=== PATIENT | female | born 1940 | race Caucasian/White ===

== ENCOUNTER 2020-08-10 15:41 | Inpatient (IN) | payer MEDICARE, OTHER, SELFPAY ==
[2020-08-10 16:03] VITALS: PULSE 75; RESP 18; O2SAT 97; BMI 30.1
[2020-08-10 16:15] VITALS: BP 144/63; PULSE 83; RESP 16; TEMP 36.5; O2SAT 93
[2020-08-10] MEDS: Aspirin E.C. 81 MG Tablet PO (18:12)
--- NOTE | 2020-08-10 19:12 | HP.PCM_ITS ---
Problem List (1) Debility Status: Acute (2) Fall Status: Acute (3) Fracture of left tibia and fibula Status: Acute (4) Asthma Status: Chronic (5) Chronic kidney disease Status: Chronic (6) Familial tremor Status: Chronic (7) History of pelvic fracture Status: Chronic (8) Hyponatremia Status: Chronic (9) Hyperlipidemia Status: Chronic (10) Hypokalemia Status: Chronic History of Present Illness Date of Admission: 08/10/20 Chief Complaint: Here for rehabilitation, strengthening, prior to discharge home alone. 08/07/20 The patient is a 80 year old Female with below past medical history admitted to [facility] after falling while walking down driveway and hurting left ankle. Patient was walking down her driveway in the snow. She slipped and fell. She has left tib-fib fracture that is not well approximated. Soft cast placed in emergency department. She will require surgery for fixation of the fracture. No syncope. Patient was cleared for surgery. 08/08/20 Orthopedics performed intramedullary rodding of left tibia. Post operative course uncomplicated. 08/10/20 Admit to TCU with debility, here for rehabilitation, strengthening, prior to discharge home alone. Past Medical History Past Medical History (Chronic Problems): Chronic Problems Asthma (Chronic) Chronic kidney disease (Chronic) Familial tremor (Chronic) History of pelvic fracture (Chronic) Hyponatremia (Chronic) Hyperlipidemia (Chronic) Hypokalemia (Chronic) Allergies No Known Allergies Allergy (Verified 08/10/20 16:15) Home Medications: Ambulatory Orders Medication Instructions Recorded Acetaminophen [Pain Relief] 650 mg PO Q4H PRN 08/10/20 Aspirin [Aspirin EC] 81 mg PO BID 08/10/20 Vit C/E/Zn/Coppr/Lutein/Zeaxan 1 tab PO DAILY 08/10/20 [Preservision Areds 2 Softgel] Surgical History: hysterectomy - Abdominal 1984., tonsillectomy, - - Arthroscopy 10/05/99, Left tibia intramedullary rodding. 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 Paternal History Items: Heart Disease, Hypertension Maternal History Items: Clotting Disorder - Thrombocytopenia., - - Glaucoma, heart valve disorder. Review of Systems Constitutional: Denies: Chills, Fever, Weight Change HEENT: Denies: Head Aches, Sinus Congestion, Sinus Drainage Cardiovascular: Denies: Chest Pain, Palpitations Respiratory: Denies: Cough, Shortness of breath at rest, Sputum production Gastrointestinal: Denies: Abdominal Pain, Nausea, Vomiting Genitourinary: Denies: Dysuria Musculoskeletal: Denies: Joint Pain, Joint Tenderness Skin: Denies: Rash, Wounds Neurological: Denies: Numbness, Tingling, Focal weakness Psychiatric: Denies: Anxiety, Depression, Homicidal Ideations, Suicidal Ideations Hematologic/ Lymphatic: Denies: Easy Bruising, Easy Bleeding VTE Information - Inpt Only VTE Present on Admission: No VTE Mechan Device Prophylaxis: Knee High KIRK Hose VTE Pharm Prophylaxis ordered?: Yes Patient Problems: Active and Suspected Problems Debility (Acute) Fall (Acute) Fracture of left tibia and fibula (Acute) - Physical Exam Vitals/I&O's: Vital Signs Temp Pulse Resp BP Pulse Ox 97.7 F L 83 16 144/63 H 93 08/10/20 16:15 08/10/20 16:15 08/10/20 16:15 08/10/20 16:15 08/10/20 16:15 Oxygen Delivery Method Room Air Weight: 72.263 kg Body Mass Index (BMI) 30.1 Intake and Output for Last 24 Hours 08/08/20 08/09/20 08/10/20 23:59 23:59 23:59 Intake Total 240 / 240 Balance 240 / 240 General: Alert, Oriented x3, Cooperative HEENT: Atraumatic, PERRLA, EOMI, Normocephalic Neck: Supple, No JVD, Negative Carotid Bruits Lungs: Clear to auscultation, Normal air movement Cardiovascular: Regular rate, No murmurs Abdomen: Bowel Sounds Present, Soft, Non Tender Extremities: No edema, Capillary Refill Less than 3 Seconds, - - Splint, YAEL wrap left lower extremity. Skin: No rashes, No breakdown Musculoskeletal: No Tenderness to Palpation of Joints or Extremities Neurological: Cranial nerves II-XII grossly intact Psych/Mental Status: Normal Affect, Appropriate Current Medications Acetaminophen (Acetaminophen 325 Mg Tablet) 650 mg PO Q4H PRN PRN Reason: Pain Score 1-10 Aspirin (Aspirin E.C. 81 Mg Tablet) 81 mg PO BID LISE Stop: 09/10/20 06:01 Last Admin: 08/10/20 18:12 Dose: 81 mg Documented by: Multivitamins/Minerals (Multivitamin (Healthy Eyes) Capsule) 1 capsule PO DAILYCM LISE Tuberculin PPD (Tuberculin,Purif.Prot.Deriv. 50 Tu/Ml Vial) 5 tu ID X1 ONE Stop: 08/11/20 10:01 Tuberculin PPD (Tuberculin,Purif.Prot.Deriv. 50 Tu/Ml Vial) 5 tu ID X1 ONE Stop: 08/18/20 10:01 Assessment/Plan All Active Problems Debility (Acute) Fall (Acute) Fracture of left tibia and fibula (Acute) 80 year old female with below past medical history hospitalized for left tibia/fibular fracture, underwent left tibia intramedullary rodding 08/08/2020, admitted to TCU with debility, here for rehabilitation, strengthening, prior to discharge home alone. * Debility - PT/OT. * Pain - Tylenol 1000MG Q6H PRN pain (1-3), Tramadol 50MG Q6H PRN pain (4-5), Oxycodone 2.5MG Q4H PRN pain (6-10). * Bowel - Miralax 17GM daily, Senna/colace 1 tablet BID, MOM 30ML daily PRN, Dulcolax 10MG WA daily PRN. * Adult immunization - Administer Prevnar 13, Pneumovax 23, Fluzone as appropriate. * DVT prophylaxis - Aspirin 81MG BID thru 09/10/2020. * Macular degeneration - Healthy Eyes 1 tablet daily.
[2020-08-11 01:49] VITALS: BP 147/83; PULSE 97; RESP 16; TEMP 36.6; O2SAT 97
[2020-08-11 05:25] LABS: Absolute Lymphocyte Count 0.99 X10^3/uL (0.83-4.51); Absolute Neutrophil Count 8.3 X10^3/uL (2.0-7.7); Basophil# 0.02 X10^3/uL; Basophil% 0.2 % (0-1); Hematocrit 31.5 % (37-47); Hemoglobin 10.4 g/dL (12.0-15.0); Lymphocyte # 0.99 X10^3/ul (4.0); Lymphocyte % 9.6 % (19-41); Mean Corpuscular Hgb 28.2 pg (27.0-32.0); Mean Corpuscular Volume 85.4 fL (81-99); Mean Platelet Vol. 12.8 fl (6.2-12.0); Monocyte# 0.92 X10^3/uL; NRBC Flagged by Analyzer 0 % (0-5); Neutrophil % 80.9 % (47-70); Platelet Count 303 K/mm3 (150-450); RBC Distribution Width CV 13.9 % (11.6-14.6); RBC Distribution Width SD 43.5 fl (35.1-43.9); Red Blood Count 3.69 M/mm3 (4.2-5.4); White Blood Count 10.3 K/mm3 (4.4-11.0)
[2020-08-11 05:42] LABS: Anion Gap 5 (5-15); BUN 23 mg/dL (7-18); BUN/Creat Ratio 41.3 RATIO (10-20); Chloride 105 mmol/L (98-107); Creatinine, Serum 0.56 mg/dL (0.55-1.02); EST Glomerular Filtration Rate 111 mL/min (>60); Est Glom Filt Rate - Afr Amer 134 mL/min (>60); Estimated Creatinine Clearance 32.73 ml/min; Glucose 94 mg/dL (74-106); Potassium 4.1 mmol/L (3.5-5.1); Sodium Level 136 mmol/L (136-145)
[2020-08-11] MEDS: Polyethylene Glycol 3350 17 GM PACKET PO (05:43)
[2020-08-11] MEDS: Senna/Docusate Sodium 1 Tablet PO (05:43)
[2020-08-11] MEDS: Aspirin E.C. 81 MG Tablet PO ×2 (08:26→18:15)
[2020-08-11] MEDS: Iron Polysaccharide Complex 150 MG CAPSULE PO (08:29)
[2020-08-11] MEDS: Multivitamin (Healthy Eyes) Capsule 1 CAP PO (08:31)
--- NOTE | 2020-08-11 12:03 | CASEMGMT ---
Social Work Discussed code status with pt. Pt confirmed full code. MOLST form reviewed, communication to , and placed in chart. Alyse Burnett, MAIL [employer]ERKS SUPERVISOR [employer]RIQUETTE MACHINE OPERATOR
[2020-08-11] MEDS: Tuberculin,Purif.prot.deriv. 50 TU/ML Vial 5 ML ID (12:27)
--- NOTE | 2020-08-11 12:31 | PCM.PN.RX ---
Progress Note - Pharmacy Subjective: [] Objective: Allergies No Known Allergies Allergy (Verified 08/10/20 16:15) Current Medications Generic Name Dose Route Start Last Admin Trade Name Freq PRN Reason Stop Dose Admin Acetaminophen 1,000 mg 08/10/20 19:30 Acetaminophen 500 Mg Tablet PO Q6H PRN PRN Pain Score 1-3 Aspirin 81 mg 08/11/20 08:00 08/11/20 08:26 Aspirin E.C. 81 Mg Tablet PO 09/10/20 08:01 81 mg BIDCM LISE Administration Bisacodyl 10 mg 08/10/20 19:29 Bisacodyl 10 Mg Suppository RECTAL DAILY PRN Constipation Magnesium Hydroxide 30 ml 08/10/20 19:29 Magnesium Hydroxide 30 Ml Udc PO DAILY PRN Constipation Multivitamins/Minerals 1 capsule 08/11/20 08:00 08/11/20 08:31 Multivitamin (Healthy Eyes) Capsule PO 1 capsule DAILY LISE Administration Oxycodone HCl 2.5 mg 08/10/20 19:29 Oxycodone 5 Mg Tablet PO Q4H PRN PRN Pain Score 6-10 Polyethylene Glycol 17 gm 08/11/20 06:00 08/11/20 05:43 Polyethylene Glycol 3350 17 Gm Packet PO 17 gm DAILY LISE Administration Polysaccharide Iron Complex 150 mg 08/11/20 08:00 08/11/20 08:29 Iron Polysaccharide Complex 150 Mg Capsule PO 150 mg DAILY LISE Administration Senna/Docusate Sodium 1 tablet 08/11/20 06:00 08/11/20 05:43 Senna/Docusate Sodium 1 Tablet PO 1 tablet BID LISE Administration Tramadol HCl 50 mg 08/10/20 19:28 Tramadol 50 Mg Tablet PO Q6H PRN PRN Pain Score 4-5 Tuberculin PPD 5 tu 08/18/20 10:00 Tuberculin,Purif.Prot.Deriv. 50 Tu/Ml Vial ID 08/18/20 10:01 X1 ONE Problem List Debility (Acute) Fall (Acute) Fracture of left tibia and fibula (Acute) Asthma (Chronic) Chronic kidney disease (Chronic) Familial tremor (Chronic) History of pelvic fracture (Chronic) Hyponatremia (Chronic) Hyperlipidemia (Chronic) Hypokalemia (Chronic) Vital Signs Temp Pulse Resp BP Pulse Ox 98 F 97 16 147/83 H 97 08/11/20 01:49 08/11/20 01:49 08/11/20 01:49 08/11/20 01:49 08/11/20 01:49 Oxygen Delivery Method Room Air Weight: 72.623 kg Body Mass Index (BMI) 30.1 Sodium 136 mmol/L (136-145) 08/11/20 04:40 Potassium 4.1 mmol/L (3.5-5.1) 08/11/20 04:40 Chloride 105 mmol/L (98-107) 08/11/20 04:40 Carbon Dioxide 26.0 mmol/L (21.0-32.0) 08/11/20 04:40 Anion Gap 5 (5-15) 08/11/20 04:40 BUN 23 mg/dL (7-18) H 08/11/20 04:40 Creatinine 0.56 mg/dL (0.55-1.02) 08/11/20 04:40 Est GFR (MDRD) Af Amer 134 mL/min (>60) 08/11/20 04:40 Est GFR (MDRD) Non-Af 111 mL/min (>60) 08/11/20 04:40 BUN/Creatinine Ratio 41.3 RATIO (10-20) H 08/11/20 04:40 Glucose 94 mg/dL (74-106) 08/11/20 04:40 Assessment/Plan: Psychotropic Medications: Unnecessary Medications: Bowel Regimen: Date of Note:: 08/11/20 - Provider Comments Provider responsibility: Provider responsible to enter orders to implement recommendations
--- NOTE | 2020-08-11 12:35 | PHA.CONS_ITS ---
<Sander Yañez D - Last Filed: 08/11/20 12:35> Progress Note - Pharmacy Subjective: TCU Admission Objective: Allergies No Known Allergies Allergy (Verified 08/10/20 16:15) Current Medications Generic Name Dose Route Start Last Admin Trade Name Freq PRN Reason Stop Dose Admin Acetaminophen 1,000 mg 08/10/20 19:30 Acetaminophen 500 Mg Tablet PO Q6H PRN PRN Pain Score 1-3 Aspirin 81 mg 08/11/20 08:00 08/11/20 08:26 Aspirin E.C. 81 Mg Tablet PO 09/10/20 08:01 81 mg BIDCM LISE Administration Bisacodyl 10 mg 08/10/20 19:29 Bisacodyl 10 Mg Suppository RECTAL DAILY PRN Constipation Magnesium Hydroxide 30 ml 08/10/20 19:29 Magnesium Hydroxide 30 Ml Udc PO DAILY PRN Constipation Multivitamins/Minerals 1 capsule 08/11/20 08:00 08/11/20 08:31 Multivitamin (Healthy Eyes) Capsule PO 1 capsule DAILY LISE Administration Oxycodone HCl 2.5 mg 08/10/20 19:29 Oxycodone 5 Mg Tablet PO Q4H PRN PRN Pain Score 6-10 Polyethylene Glycol 17 gm 08/11/20 06:00 08/11/20 05:43 Polyethylene Glycol 3350 17 Gm Packet PO 17 gm DAILY LISE Administration Polysaccharide Iron Complex 150 mg 08/11/20 08:00 08/11/20 08:29 Iron Polysaccharide Complex 150 Mg Capsule PO 150 mg DAILYCM LISE Administration Senna/Docusate Sodium 1 tablet 08/11/20 06:00 08/11/20 05:43 Senna/Docusate Sodium 1 Tablet PO 1 tablet BID LISE Administration Tramadol HCl 50 mg 08/10/20 19:28 Tramadol 50 Mg Tablet PO Q6H PRN PRN Pain Score 4-5 Tuberculin PPD 5 tu 08/18/20 10:00 Tuberculin,Purif.Prot.Deriv. 50 Tu/Ml Vial ID 08/18/20 10:01 X1 ONE Problem List Debility (Acute) Fall (Acute) Fracture of left tibia and fibula (Acute) Asthma (Chronic) Chronic kidney disease (Chronic) Familial tremor (Chronic) History of pelvic fracture (Chronic) Hyponatremia (Chronic) Hyperlipidemia (Chronic) Hypokalemia (Chronic) Vital Signs Temp Pulse Resp BP Pulse Ox 98 F 97 16 147/83 H 97 08/11/20 01:49 08/11/20 01:49 08/11/20 01:49 08/11/20 01:49 08/11/20 01:49 Oxygen Delivery Method Room Air Weight: 72.623 kg Body Mass Index (BMI) 30.1 Sodium 136 mmol/L (136-145) 08/11/20 04:40 Potassium 4.1 mmol/L (3.5-5.1) 08/11/20 04:40 Chloride 105 mmol/L (98-107) 08/11/20 04:40 Carbon Dioxide 26.0 mmol/L (21.0-32.0) 08/11/20 04:40 Anion Gap 5 (5-15) 08/11/20 04:40 BUN 23 mg/dL (7-18) H 08/11/20 04:40 Creatinine 0.56 mg/dL (0.55-1.02) 08/11/20 04:40 Est GFR (MDRD) Af Amer 134 mL/min (>60) 08/11/20 04:40 Est GFR (MDRD) Non-Af 111 mL/min (>60) 08/11/20 04:40 BUN/Creatinine Ratio 41.3 RATIO (10-20) H 08/11/20 04:40 Glucose 94 mg/dL (74-106) 08/11/20 04:40 Assessment/Plan: 1) Pain APAP for pain 1-3, tramadol for pain 4-5, oxycodone for pain 6-10. Continue to monitor daily pain scores, prn medication use. 2) DVT PPx ASA thru 09/10. Continue to monitor for s/s bleeding/clot. 3) Nutrition Fe, MV. Continue to monitor clinically. Psychotropic Medications: None Unnecessary Medications: None Bowel Regimen: 4) Senna/s, PEG, prn bisacodyl, prn MgOH. Continue to monitor prn medication use, for constipation/diarrhea. Date of Note:: 08/11/20 - Provider Comments Provider responsibility: Provider responsible to enter orders to implement recommendations <Jenaro,Eduardo Chi - Last Filed: 08/11/20 14:21> Progress Note - Pharmacy Subjective: [] Objective: Allergies No Known Allergies Allergy (Verified 08/10/20 16:15) Current Medications Generic Name Dose Route Start Last Admin Trade Name Nhan PRN Reason Stop Dose Admin Acetaminophen 1,000 mg 08/10/20 19:30 Acetaminophen 500 Mg Tablet PO Q6H PRN PRN Pain Score 1-3 Aspirin 81 mg 08/11/20 08:00 08/11/20 08:26 Aspirin E.C. 81 Mg Tablet PO 09/10/20 08:01 81 mg BIDCM [facility] Administration Bisacodyl 10 mg 08/10/20 19:29 Bisacodyl 10 Mg Suppository RECTAL DAILY PRN Constipation Magnesium Hydroxide 30 ml 08/10/20 19:29 Magnesium Hydroxide 30 Ml Udc PO DAILY PRN Constipation Multivitamins/Minerals 1 capsule 08/11/20 08:00 08/11/20 08:31 [facility]ivitamin (Healthy [facility]) [facility] Administration Oxycodone HCl 2.5 mg 08/10/20 19:29 Oxycodone 5 Mg Tablet PO Q4H PRN PRN Pain Score 6-10 Polyethylene Glycol 17 gm 08/11/20 06:00 08/11/20 05:43 Polyethylene Glycol 3350 17 Gm Packet PO 17 gm DAILY [facility] Administration Polysaccharide Iron Complex 150 mg 08/11/20 08:00 08/11/20 08:29 Iron Polysaccharide Complex 150 Mg [facility]apsule [facility] Administration Senna/Docusate Sodium 1 tablet 08/11/20 06:00 08/11/20 05:43 Senna/Docusate Sodium 1 Tablet PO 1 tablet BID [facility] Administration Tramadol HCl 50 mg 08/10/20 19:28 Tramadol 50 Mg Tablet PO Q6H PRN PRN Pain Score 4-5 Tuberculin PPD 5 tu 08/18/20 10:00 Tuberculin,Purif.Prot.Deriv. 50 Tu/Ml Vial ID 08/18/20 10:01 X1 ONE Problem List Debility (Acute) Fall (Acute) Fracture of left tibia and fibula (Acute) Asthma (Chronic) Chronic kidney disease (Chronic) Familial tremor (Chronic) History of pelvic fracture (Chronic) Hyponatremia (Chronic) Hyperlipidemia (Chronic) Hypokalemia (Chronic) Vital Signs Temp Pulse Resp BP Pulse Ox 98 F 97 16 147/83 H 97 08/11/20 01:49 08/11/20 01:49 08/11/20 01:49 08/11/20 01:49 08/11/20 01:49 Oxygen Delivery Method Room Air Weight: 72.623 kg Body Mass Index (BMI) 30.1 Sodium 136 mmol/L (136-145) 08/11/20 04:40 Potassium 4.1 mmol/L (3.5-5.1) 08/11/20 04:40 Chloride 105 mmol/L (98-107) 08/11/20 04:40 Carbon Dioxide 26.0 mmol/L (21.0-32.0) 08/11/20 04:40 Anion Gap 5 (5-15) 08/11/20 04:40 BUN 23 mg/dL (7-18) H 08/11/20 04:40 Creatinine 0.56 mg/dL (0.55-1.02) 08/11/20 04:40 Est GFR (MDRD) Af Amer 134 mL/min (>60) 08/11/20 04:40 Est GFR (MDRD) Non-Af 111 mL/min (>60) 08/11/20 04:40 BUN/Creatinine Ratio 41.3 RATIO (10-20) H 08/11/20 04:40 Glucose 94 mg/dL (74-106) 08/11/20 04:40 Assessment/Plan: Psychotropic Medications: Unnecessary Medications: Bowel Regimen: - Provider Comments Provider responsibility: Provider responsible to enter orders to implement recommendations Provider Comments to Recommendations by Pharmacy: Agree
[2020-08-11 14:51] VITALS: BP 156/72; PULSE 86; RESP 16; TEMP 36.3; O2SAT 95
[2020-08-12 04:00] VITALS: BP 127/61; PULSE 85; RESP 16; TEMP 36.7; O2SAT 92
[2020-08-12] MEDS: Multivitamin (Healthy Eyes) Capsule 1 CAP PO (08:22)
[2020-08-12] MEDS: Iron Polysaccharide Complex 150 MG CAPSULE PO (08:22)
[2020-08-12] MEDS: Aspirin E.C. 81 MG Tablet PO ×2 (08:23→17:23)
--- NOTE | 2020-08-12 12:48 | CASEMGMT ---
Social Work IDT met with patient and friend via conference call for care plan meeting. Discussed patient's progress in therapy. Pt is modA for bed mobility, min for tx, CGA while ambulating 15ft with FWW, and while maintaining TTWBS. Pt is SBA for grooming, SBA while seated for UE ADLs and toileting, CGA for tx, min for LE ADLs. Pt is on a regular diet, receiving Elias, good intake, weight is stable. Pt is out of isolation 1/3. Explained Medicare benefit. Pt's plan is to return home alone, but can stay at a friends house if needed. Provided [employer] resources. Will continue to follow. Alyse Burnett, BRADLEY KRISHNANW
[2020-08-12 14:26] VITALS: BP 141/79; PULSE 91; RESP 16; TEMP 36.6; O2SAT 95
[2020-08-13 05:42] VITALS: BP 137/70; PULSE 90; RESP 16; TEMP 36.4; O2SAT 93
[2020-08-13] MEDS: Aspirin E.C. 81 MG Tablet PO ×2 (09:06→17:28)
[2020-08-13] MEDS: Multivitamin (Healthy Eyes) Capsule 1 CAP PO (09:06)
[2020-08-13] MEDS: Iron Polysaccharide Complex 150 MG CAPSULE PO (09:06)
--- NOTE | 2020-08-13 11:38 | MDS.RN ---
Pain interview for KASEY 08/17/20 completed.
[2020-08-13 12:28] VITALS: PULSE 82; RESP 18; O2SAT 95
[2020-08-13 14:40] VITALS: BP 140/70; PULSE 66; RESP 16; TEMP 36.9; O2SAT 93
[2020-08-14 06:40] VITALS: BP 137/49; PULSE 85; RESP 15; TEMP 36.8; O2SAT 95
[2020-08-14] MEDS: Iron Polysaccharide Complex 150 MG CAPSULE PO (08:09)
[2020-08-14] MEDS: Aspirin E.C. 81 MG Tablet PO ×2 (08:09→17:02)
[2020-08-14] MEDS: Multivitamin (Healthy Eyes) Capsule 1 CAP PO (08:10)
[2020-08-14 15:01] VITALS: BP 135/77; PULSE 81; RESP 16; TEMP 35.6; O2SAT 94
[2020-08-15 01:58] VITALS: BP 146/79; PULSE 77; RESP 16; TEMP 36.6; O2SAT 98
[2020-08-15] MEDS: Aspirin E.C. 81 MG Tablet PO ×2 (08:19→17:40)
[2020-08-15] MEDS: Iron Polysaccharide Complex 150 MG CAPSULE PO (08:19)
[2020-08-15] MEDS: Multivitamin (Healthy Eyes) Capsule 1 CAP PO (08:19)
[2020-08-15 10:00] VITALS: PULSE 82; RESP 18; O2SAT 95
[2020-08-15 16:00] VITALS: BP 115/44; PULSE 88; RESP 16; TEMP 36.9; O2SAT 96
[2020-08-15] MEDS: Nystatin Powder 15gm Bottle 1 APPLIC TOPICAL (17:40)
[2020-08-16 04:00] VITALS: BP 146/45; PULSE 86; RESP 16; TEMP 36.9; O2SAT 95
[2020-08-16] MEDS: Nystatin Powder 15gm Bottle 1 APPLIC TOPICAL ×2 (04:47→17:20)
[2020-08-16] MEDS: Aspirin E.C. 81 MG Tablet PO ×2 (09:22→17:20)
[2020-08-16] MEDS: Iron Polysaccharide Complex 150 MG CAPSULE PO (09:22)
[2020-08-16] MEDS: Multivitamin (Healthy Eyes) Capsule 1 CAP PO (09:22)
[2020-08-16 15:44] VITALS: BP 113/62; PULSE 91; RESP 16; TEMP 36.9; O2SAT 96
[2020-08-16 21:45] VITALS: BP 122/59; PULSE 90; RESP 16; TEMP 37.2; O2SAT 95
[2020-08-17 04:00] VITALS: BP 132/53; PULSE 88; RESP 18; TEMP 36.9; O2SAT 93
[2020-08-17] MEDS: Nystatin Powder 15gm Bottle 1 APPLIC TOPICAL ×2 (05:00→16:35)
[2020-08-17] MEDS: Multivitamin (Healthy Eyes) Capsule 1 CAP PO (09:00)
[2020-08-17] MEDS: Iron Polysaccharide Complex 150 MG CAPSULE PO (09:00)
[2020-08-17] MEDS: Aspirin E.C. 81 MG Tablet PO ×2 (09:00→16:35)
[2020-08-17 10:00] VITALS: PULSE 99; RESP 18; O2SAT 96
[2020-08-17 14:41] VITALS: BP 133/50; PULSE 88; RESP 18; TEMP 36.8; O2SAT 95
[2020-08-17] MEDS: Senna/Docusate Sodium 1 Tablet PO (16:35)
[2020-08-18 05:31] VITALS: BP 144/71; PULSE 82; RESP 16; TEMP 36.6; O2SAT 94
[2020-08-18] MEDS: Nystatin Powder 15gm Bottle 1 APPLIC TOPICAL ×2 (05:31→17:03)
[2020-08-18 05:45] LABS: Absolute Lymphocyte Count 1.82 X10^3/uL (0.83-4.51); Absolute Neutrophil Count 8.7 X10^3/uL (2.0-7.7); Basophil# 0.03 X10^3/uL; Basophil% 0.3 % (0-1); Hematocrit 32.8 % (37-47); Hemoglobin 10.2 g/dL (12.0-15.0); Lymphocyte # 1.82 X10^3/ul (4.0); Lymphocyte % 15.4 % (19-41); Mean Corp Hgb Conc 31.1 g/dL (32-36); Mean Corpuscular Hgb 26.9 pg (27.0-32.0); Mean Corpuscular Volume 86.5 fL (81-99); Mean Platelet Vol. 12.1 fl (6.2-12.0); Monocyte# 1.23 X10^3/uL; Monocyte% 10.4 % (0-10); NRBC Flagged by Analyzer 0 % (0-5); Neutrophil # 8.69 X10^3/uL (2.7-7.7); Neutrophil % 73.2 % (47-70); Platelet Count 457 K/mm3 (150-450); RBC Distribution Width CV 14.1 % (11.6-14.6); RBC Distribution Width SD 44.2 fl (35.1-43.9); Red Blood Count 3.79 M/mm3 (4.2-5.4); White Blood Count 11.9 K/mm3 (4.4-11.0)
[2020-08-18 06:10] LABS: Anion Gap 3 (5-15); BUN 47 mg/dL (7-18); BUN/Creat Ratio 81.9 RATIO (10-20); Calcium,Total 8.5 mg/dL (8.5-10.1); Chloride 103 mmol/L (98-107); Creatinine, Serum 0.57 mg/dL (0.55-1.02); EST Glomerular Filtration Rate 107 mL/min (>60); Est Glom Filt Rate - Afr Amer 129 mL/min (>60); Estimated Creatinine Clearance 32.73 ml/min; Glucose 91 mg/dL (74-106); Potassium 4.4 mmol/L (3.5-5.1); Sodium Level 135 mmol/L (136-145)
[2020-08-18] MEDS: Aspirin E.C. 81 MG Tablet PO ×2 (07:26→17:03)
[2020-08-18] MEDS: Iron Polysaccharide Complex 150 MG CAPSULE PO (07:27)
[2020-08-18] MEDS: Multivitamin (Healthy Eyes) Capsule 1 CAP PO (07:27)
[2020-08-18 13:35] VITALS: BP 126/62; PULSE 90; RESP 16; TEMP 36.4; O2SAT 92
[2020-08-18] MEDS: Tuberculin,Purif.prot.deriv. 50 TU/ML Vial 5 ML ID (13:53)
--- NOTE | 2020-08-18 14:58 | NURSING ---
Resident and family updated on COVID status on unit.
[2020-08-18] MEDS: Senna/Docusate Sodium 1 Tablet PO (17:03)
--- NOTE | 2020-08-18 22:42 | NURSING ---
Patient had otto in purse that she wanted to be locked up. $194 was counted with patient and RN Uzma. Then money was put in bag and put in med drawer.
[2020-08-19] MEDS: Nystatin Powder 15gm Bottle 1 APPLIC TOPICAL ×2 (06:13→17:47)
[2020-08-19 06:15] VITALS: BP 131/58; PULSE 75; RESP 18; TEMP 36.6; O2SAT 94
[2020-08-19] MEDS: Aspirin E.C. 81 MG Tablet PO ×2 (08:32→17:47)
[2020-08-19] MEDS: Multivitamin (Healthy Eyes) Capsule 1 CAP PO (08:33)
[2020-08-19] MEDS: Iron Polysaccharide Complex 150 MG CAPSULE PO (08:33)
--- NOTE | 2020-08-19 13:21 | NURSING ---
This nurse talked with son today answering questions he had about covid and the vaccine.
[2020-08-19 14:07] VITALS: BP 156/88; PULSE 81; RESP 18; TEMP 36.8; O2SAT 94
[2020-08-19] MEDS: Senna/Docusate Sodium 1 Tablet PO (17:47)
[2020-08-19 21:35] LABS: Bedside Glucose 113 mg/dL (70-110)
[2020-08-20 05:03] VITALS: BP 141/68; PULSE 83; RESP 18; TEMP 36.6; O2SAT 94
[2020-08-20] MEDS: Senna/Docusate Sodium 1 Tablet PO ×2 (05:05→17:55)
[2020-08-20] MEDS: Polyethylene Glycol 3350 17 GM PACKET PO (05:05)
[2020-08-20] MEDS: Nystatin Powder 15gm Bottle 1 APPLIC TOPICAL ×2 (05:06→17:55)
[2020-08-20] MEDS: Iron Polysaccharide Complex 150 MG CAPSULE PO (07:51)
[2020-08-20] MEDS: Aspirin E.C. 81 MG Tablet PO ×2 (07:51→17:55)
[2020-08-20] MEDS: Multivitamin (Healthy Eyes) Capsule 1 CAP PO (07:51)
--- NOTE | 2020-08-20 12:38 | MDS.RN ---
Information for the mds was obtained from review of the clinical record, interview of resident, staff, and direct observation of resident's care.
[2020-08-20 15:30] VITALS: BP 117/48; PULSE 92; RESP 18; TEMP 36.3; O2SAT 94
[2020-08-21] MEDS: Nystatin Powder 15gm Bottle 1 APPLIC TOPICAL ×2 (06:41→17:00)
[2020-08-21] MEDS: Multivitamin (Healthy Eyes) Capsule 1 CAP PO (08:26)
[2020-08-21] MEDS: Aspirin E.C. 81 MG Tablet PO ×2 (08:27→17:00)
[2020-08-21] MEDS: Iron Polysaccharide Complex 150 MG CAPSULE PO (08:27)
[2020-08-21 13:48] VITALS: BP 125/53; PULSE 81; RESP 16; TEMP 36.8; O2SAT 97
--- NOTE | 2020-08-21 14:36 | NURSING ---
Update provided to family.
[2020-08-21] MEDS: Senna/Docusate Sodium 1 Tablet PO (17:00)
[2020-08-22 05:09] VITALS: BP 131/57; PULSE 79; RESP 16; TEMP 36; O2SAT 96
[2020-08-22] MEDS: Senna/Docusate Sodium 1 Tablet PO (05:10)
[2020-08-22] MEDS: Nystatin Powder 15gm Bottle 1 APPLIC TOPICAL ×2 (05:14→17:40)
[2020-08-22] MEDS: Multivitamin (Healthy Eyes) Capsule 1 CAP PO (08:44)
[2020-08-22] MEDS: Iron Polysaccharide Complex 150 MG CAPSULE PO (08:44)
[2020-08-22] MEDS: Aspirin E.C. 81 MG Tablet PO ×2 (08:44→17:39)
--- NOTE | 2020-08-22 08:53 | NURSING ---
pt stated that she felt her head was in a bubble and her left ear was ringing. vitals done. reported to rn.
[2020-08-22 08:55] VITALS: BP 141/60; PULSE 94; RESP 18; TEMP 36.8; O2SAT 96
[2020-08-22 11:26] VITALS: PULSE 82; RESP 18; O2SAT 96
[2020-08-22 14:08] VITALS: BP 121/64; PULSE 93; RESP 18; TEMP 36.4; O2SAT 94
[2020-08-23] MEDS: Senna/Docusate Sodium 1 Tablet PO ×2 (03:51→16:50)
[2020-08-23] MEDS: Nystatin Powder 15gm Bottle 1 APPLIC TOPICAL ×2 (03:54→16:47)
[2020-08-23 03:55] VITALS: BP 136/45; PULSE 75; RESP 18; TEMP 36.7; O2SAT 97
[2020-08-23] MEDS: Iron Polysaccharide Complex 150 MG CAPSULE PO (08:45)
[2020-08-23] MEDS: Aspirin E.C. 81 MG Tablet PO ×2 (08:45→16:47)
[2020-08-23] MEDS: Multivitamin (Healthy Eyes) Capsule 1 CAP PO (08:45)
[2020-08-23 08:54] VITALS: PULSE 94; RESP 18; O2SAT 97
[2020-08-23 13:41] VITALS: BP 130/48; PULSE 72; RESP 16; TEMP 36.7; O2SAT 96
[2020-08-24 04:00] VITALS: BP 145/51; PULSE 78; RESP 18; TEMP 36.6; O2SAT 96
[2020-08-24] MEDS: Nystatin Powder 15gm Bottle 1 APPLIC TOPICAL ×2 (04:20→17:46)
--- NOTE | 2020-08-24 08:00 | NURSING ---
Addendum entered by Sofiya Nicholas 08/24/20 14:18: Sandrine D/c'd per order, 22 sandrine removed Original Note: [facility] called, Dr. Cristina is out of office so f/u appointment for today cancelled, N.O. repeat xrays and call them and let them know when they are done, and ok to d/c sandrine today if incision looks good.
[2020-08-24] MEDS: Aspirin E.C. 81 MG Tablet PO ×2 (08:21→17:44)
[2020-08-24] MEDS: Iron Polysaccharide Complex 150 MG CAPSULE PO (08:21)
[2020-08-24] MEDS: Multivitamin (Healthy Eyes) Capsule 1 CAP PO (08:21)
[2020-08-24 08:30] VITALS: RESP 18
--- NOTE | 2020-08-24 11:56 | NURSING ---
wound photo: left leg
--- NOTE | 2020-08-24 11:57 | NURSING ---
wound photo: left lower leg
--- NOTE | 2020-08-24 11:58 | NURSING ---
wound photo: left medial lower leg
--- NOTE | 2020-08-24 13:10 | RAD_ITS ---
HISTORY: F/U from surgery X2 WEEKS AGO ADDITIONAL HISTORY: None provided. EXAMINATION/TECHNIQUE: XR Tibia/Fibula 2 Views Left Number of images including paperwork: 2 COMPARISON: None FINDINGS: Detail limited by overlying fiberglass material. BONES: Obliquely oriented fracture of the mid to distal diaphysis of the left tibia is noted transverse with a 10 antegrade IM parvez and proximal and distal screws. Medial displacement of the distal component measures about 4 mm. Mildly comminuted fracture of the distal fibular diaphysis is also noted with minimal displacement and possible minimal callus formation. Mineralization appears decreased. JOINTS: No subluxation. SOFT TISSUES: No distinct foreign body. RAD/Tibia & Fibula 2 Views IMPRESSION: Status post ORIF of left distal tibia fracture. Left distal fibula fracture. at 0022 Reported and signed by: Uzma Mcgowan MD Electronically Signed: Uzma Mcgowan MD at 0:22 EST Tel , Service support ,
--- NOTE | 2020-08-24 13:45 | NURSING ---
Update provided to family.
[2020-08-24 14:22] VITALS: BP 118/44; PULSE 77; RESP 16; TEMP 36.3; O2SAT 96
[2020-08-25 01:58] VITALS: BP 105/87; PULSE 92; RESP 16; TEMP 36.9; O2SAT 95
[2020-08-25] MEDS: Acetaminophen 500 MG Tablet 1000 MG PO (05:28)
[2020-08-25] MEDS: Nystatin Powder 15gm Bottle 1 APPLIC TOPICAL ×2 (05:29→17:34)
[2020-08-25 05:41] LABS: Absolute Lymphocyte Count 1.27 X10^3/uL (0.83-4.51); Absolute Neutrophil Count 8.2 X10^3/uL (2.0-7.7); Basophil# 0.05 X10^3/uL; Basophil% 0.5 % (0-1); Hematocrit 32.8 % (37-47); Hemoglobin 10.3 g/dL (12.0-15.0); Lymphocyte # 1.27 X10^3/ul (4.0); Lymphocyte % 12.1 % (19-41); Mean Corp Hgb Conc 31.4 g/dL (32-36); Mean Corpuscular Hgb 27.3 pg (27.0-32.0); Mean Platelet Vol. 12.1 fl (6.2-12.0); Monocyte# 0.83 X10^3/uL; Monocyte% 7.9 % (0-10); NRBC Flagged by Analyzer 0 % (0-5); Neutrophil # 8.24 X10^3/uL (2.7-7.7); Neutrophil % 78.8 % (47-70); Platelet Count 422 K/mm3 (150-450); RBC Distribution Width CV 14.2 % (11.6-14.6); RBC Distribution Width SD 44.5 fl (35.1-43.9); Red Blood Count 3.77 M/mm3 (4.2-5.4); White Blood Count 10.5 K/mm3 (4.4-11.0)
[2020-08-25 05:53] LABS: Anion Gap 3 (5-15); BUN 47 mg/dL (7-18); BUN/Creat Ratio 71.1 RATIO (10-20); Calcium,Total 8.5 mg/dL (8.5-10.1); Chloride 107 mmol/L (98-107); Creatinine, Serum 0.66 mg/dL (0.55-1.02); EST Glomerular Filtration Rate 91 mL/min (>60); Est Glom Filt Rate - Afr Amer 110 mL/min (>60); Estimated Creatinine Clearance 32.73 ml/min; Glucose 91 mg/dL (74-106); Potassium 4.4 mmol/L (3.5-5.1); Sodium Level 139 mmol/L (136-145)
[2020-08-25] MEDS: Aspirin E.C. 81 MG Tablet PO ×2 (08:17→17:33)
[2020-08-25] MEDS: Multivitamin (Healthy Eyes) Capsule 1 CAP PO (08:17)
[2020-08-25] MEDS: Iron Polysaccharide Complex 150 MG CAPSULE PO (08:17)
[2020-08-25 08:40] VITALS: PULSE 96; RESP 18; O2SAT 99
[2020-08-25 13:59] VITALS: BP 132/65; PULSE 79; RESP 16; TEMP 36.3; O2SAT 96
[2020-08-25] MEDS: Senna/Docusate Sodium 1 Tablet PO (17:33)
[2020-08-26 04:00] VITALS: BP 138/64; PULSE 78; RESP 16; TEMP 36.6; O2SAT 95
[2020-08-26] MEDS: Aspirin E.C. 81 MG Tablet PO ×2 (10:06→16:08)
[2020-08-26] MEDS: Multivitamin (Healthy Eyes) Capsule 1 CAP PO (10:06)
[2020-08-26] MEDS: Iron Polysaccharide Complex 150 MG CAPSULE PO (10:06)
[2020-08-26 13:38] VITALS: BP 131/65; PULSE 80; RESP 16; TEMP 36.4; O2SAT 96
--- NOTE | 2020-08-26 16:02 | NURSING ---
Dr. Cristina's called to give new orders pt switched to 50% weight bearing on left foot and to continue taking aspirin that was ordered for 4 weeks.
[2020-08-26] MEDS: Senna/Docusate Sodium 1 Tablet PO (16:08)
[2020-08-26] MEDS: Nystatin Powder 15gm Bottle 1 APPLIC TOPICAL (16:09)
[2020-08-27 04:00] VITALS: BP 145/57; PULSE 74; RESP 16; TEMP 36.6; O2SAT 96
[2020-08-27] MEDS: Multivitamin (Healthy Eyes) Capsule 1 CAP PO (08:44)
[2020-08-27] MEDS: Iron Polysaccharide Complex 150 MG CAPSULE PO (08:44)
[2020-08-27] MEDS: Aspirin E.C. 81 MG Tablet PO ×2 (08:44→16:21)
[2020-08-27 10:00] VITALS: PULSE 66; RESP 18; O2SAT 96
--- NOTE | 2020-08-27 13:46 | NURSING ---
Resident and family updated on the current COVID status on the unit.
[2020-08-27 13:53] VITALS: BP 146/63; PULSE 71; RESP 16; TEMP 36.3; O2SAT 96
[2020-08-27] MEDS: Senna/Docusate Sodium 1 Tablet PO (16:21)
[2020-08-27] MEDS: Nystatin Powder 15gm Bottle 1 APPLIC TOPICAL (16:21)
[2020-08-28 07:01] VITALS: BP 132/55; PULSE 71; RESP 16; TEMP 36.3; O2SAT 98
[2020-08-28] MEDS: Polyethylene Glycol 3350 17 GM PACKET PO (07:04)
[2020-08-28] MEDS: Senna/Docusate Sodium 1 Tablet PO ×2 (07:05→16:41)
[2020-08-28] MEDS: Nystatin Powder 15gm Bottle 1 APPLIC TOPICAL ×2 (07:06→16:41)
[2020-08-28] MEDS: Iron Polysaccharide Complex 150 MG CAPSULE PO (08:33)
[2020-08-28] MEDS: Multivitamin (Healthy Eyes) Capsule 1 CAP PO (08:33)
[2020-08-28] MEDS: Aspirin E.C. 81 MG Tablet PO ×2 (08:33→16:41)
[2020-08-28 13:25] VITALS: BP 124/63; PULSE 81; RESP 17; TEMP 36.8; O2SAT 95
[2020-08-28 21:52] VITALS: PULSE 70; RESP 16; O2SAT 97
[2020-08-29 04:00] VITALS: BP 130/50; PULSE 76; RESP 15; TEMP 36.2; O2SAT 96
[2020-08-29] MEDS: Polyethylene Glycol 3350 17 GM PACKET PO (04:38)
[2020-08-29] MEDS: Nystatin Powder 15gm Bottle 1 APPLIC TOPICAL ×2 (04:38→17:27)
[2020-08-29] MEDS: Senna/Docusate Sodium 1 Tablet PO ×2 (04:38→17:27)
[2020-08-29] MEDS: Multivitamin (Healthy Eyes) Capsule 1 CAP PO (08:09)
[2020-08-29] MEDS: Aspirin E.C. 81 MG Tablet PO ×2 (08:09→17:27)
[2020-08-29] MEDS: Iron Polysaccharide Complex 150 MG CAPSULE PO (08:09)
[2020-08-29 12:34] VITALS: PULSE 74; RESP 18; O2SAT 98
[2020-08-29 15:44] VITALS: BP 128/65; PULSE 70; RESP 16; TEMP 36.1; O2SAT 97
[2020-08-30 04:54] VITALS: BP 135/84; PULSE 87; RESP 16; TEMP 36.8; O2SAT 98
[2020-08-30] MEDS: Iron Polysaccharide Complex 150 MG CAPSULE PO (08:41)
[2020-08-30] MEDS: Multivitamin (Healthy Eyes) Capsule 1 CAP PO (08:41)
[2020-08-30] MEDS: Aspirin E.C. 81 MG Tablet PO ×2 (08:41→17:29)
[2020-08-30] MEDS: Nystatin Powder 15gm Bottle 1 APPLIC TOPICAL ×2 (08:44→17:29)
[2020-08-30] MEDS: Senna/Docusate Sodium 1 Tablet PO (08:44)
[2020-08-30] MEDS: Polyethylene Glycol 3350 17 GM PACKET PO (08:44)
[2020-08-30 14:48] VITALS: BP 153/58; PULSE 70; RESP 16; TEMP 36.3; O2SAT 96
[2020-08-31 01:15] VITALS: BP 126/78; PULSE 70; RESP 16; TEMP 36.6; O2SAT 97
[2020-08-31] MEDS: Aspirin E.C. 81 MG Tablet PO ×2 (08:50→17:34)
[2020-08-31] MEDS: Multivitamin (Healthy Eyes) Capsule 1 CAP PO (08:50)
[2020-08-31] MEDS: Iron Polysaccharide Complex 150 MG CAPSULE PO (08:50)
[2020-08-31] MEDS: Senna/Docusate Sodium 1 Tablet PO (08:50)
[2020-08-31] MEDS: Nystatin Powder 15gm Bottle 1 APPLIC TOPICAL ×2 (08:51→17:34)
[2020-08-31 12:34] VITALS: PULSE 84; RESP 18; O2SAT 96
[2020-08-31 14:02] VITALS: BP 159/82; PULSE 98; RESP 16; TEMP 36.1; O2SAT 96
--- NOTE | 2020-08-31 15:30 | NURSING ---
dr chisholm office notified to get orders for splint removal to check skin or leave intact, office to return call after speaking with lewis.
[2020-09-01 05:42] LABS: Absolute Lymphocyte Count 1.34 X10^3/uL (0.83-4.51); Absolute Neutrophil Count 6.4 X10^3/uL (2.0-7.7); Basophil# 0.02 X10^3/uL; Basophil% 0.2 % (0-1); Hemoglobin 10.7 g/dL (12.0-15.0); Lymphocyte # 1.34 X10^3/ul (4.0); Lymphocyte % 15.7 % (19-41); Mean Corp Hgb Conc 31.5 g/dL (32-36); Mean Corpuscular Hgb 26.9 pg (27.0-32.0); Mean Corpuscular Volume 85.4 fL (81-99); Mean Platelet Vol. 12.2 fl (6.2-12.0); Monocyte# 0.75 X10^3/uL; Monocyte% 8.8 % (0-10); NRBC Flagged by Analyzer 0 % (0-5); Neutrophil # 6.38 X10^3/uL (2.7-7.7); Neutrophil % 74.9 % (47-70); Platelet Count 349 K/mm3 (150-450); RBC Distribution Width CV 14.1 % (11.6-14.6); RBC Distribution Width SD 43.9 fl (35.1-43.9); Red Blood Count 3.98 M/mm3 (4.2-5.4); White Blood Count 8.5 K/mm3 (4.4-11.0)
[2020-09-01 06:01] LABS: Anion Gap 4 (5-15); BUN 46 mg/dL (7-18); BUN/Creat Ratio 77.1 RATIO (10-20); Calcium,Total 8.5 mg/dL (8.5-10.1); Chloride 105 mmol/L (98-107); EST Glomerular Filtration Rate 102 mL/min (>60); Est Glom Filt Rate - Afr Amer 124 mL/min (>60); Estimated Creatinine Clearance 32.73 ml/min; Glucose 89 mg/dL (74-106); Potassium 4.2 mmol/L (3.5-5.1); Sodium Level 137 mmol/L (136-145)
[2020-09-01] MEDS: Aspirin E.C. 81 MG Tablet PO ×2 (09:05→16:45)
[2020-09-01] MEDS: Iron Polysaccharide Complex 150 MG CAPSULE PO (09:05)
[2020-09-01] MEDS: Multivitamin (Healthy Eyes) Capsule 1 CAP PO (09:05)
[2020-09-01] MEDS: Senna/Docusate Sodium 1 Tablet PO (09:06)
[2020-09-01] MEDS: Nystatin Powder 15gm Bottle 1 APPLIC TOPICAL ×2 (09:07→16:46)
[2020-09-01 14:04] VITALS: BP 135/71; PULSE 75; RESP 16; TEMP 36.5; O2SAT 92
--- NOTE | 2020-09-01 14:10 | CASEMGMT ---
Social Work Son contacted to inquire about DC plans. He lives in [place] and booked a flight to come stay with the pt for 09/12. IDT agreeable to DC 09/13. Met with patient, and she is agreeable as well. Referral made to [facility] for PT/OT. No DME needs. Family to transport. Plan: DC home with son support 09/13 with [facility] PT/OT BRADLEY ChangW
--- NOTE | 2020-09-01 14:21 | NURSING ---
Spoke with Dr. Cristina's office. pt no longer needs to wear splint and is to wear walking boot when OOB, and is 505 weight bearing.
--- NOTE | 2020-09-01 20:19 | DCINST_ITS ---
- Discharge Diagnoses Current Active Problems: Current Active and Chronic Problems Debility (Acute) Fall (Acute) Fracture of left tibia and fibula (Acute) Asthma (Chronic) Chronic kidney disease (Chronic) Familial tremor (Chronic) History of pelvic fracture (Chronic) Hyponatremia (Chronic) Hyperlipidemia (Chronic) Hypokalemia (Chronic) You will use the following diet at home:: No restrictions, Regular Your food should be the consistency of: Regular Your liquids should be the consistency of: Regular/Thin Discharge Activity: Return to Normal Activity, May Shower, Use Walker Weight Bearing Status: Partial weight bearing - 50% Left lower extremity. Keep extremity elevated above heart level: Operative Extremity, Left Leg Call your doctor if you observe: Fever of 101 or Higher, Inability to urinate, Inability to have a bowel movement, Shortness of breath, Chest pain, Uncontrolled pain Allergies/Adverse Reactions: Allergies No Known Allergies Allergy (Verified 08/10/20 16:15) Medications to take at Discharge Vit C/E/Zn/Coppr/Lutein/Zeaxan [Preservision Areds 2 Softgel] 1 tab PO DAILY 08/10/20 Acetaminophen [Tylenol] 1,000 mg PO Q6H PRN PRN tablet 09/01/20 Iron Polysaccharide Complex [Ferrex 150] 150 mg PO DAILYCM #30 cap 09/01/20 Nystatin Powder [Mycostatin Powder] 1 applic TOPICAL 0800,1800 bottle 09/01/20 The following prescriptions were given: Iron Polysaccharide Complex [Ferrex 150] 150 mg PO DAILYCM #30 cap Transmission Status: Pending to [facility] Please follow up with your Primary Care Physician in: 1 week. Test Results: Test results from this visit will be discussed in further detail at your follow- up appointment, if applicable. Please Follow Up With: Kevin Cristina MD When: [phone] Proposed Discharge Date: 09/13/20
--- NOTE | 2020-09-01 20:21 | PCM.DC.SUM ---
Discharge Date and Diagnosis - Problem List Patient Problems: Active and Suspected Problems Debility (Acute) Fall (Acute) Fracture of left tibia and fibula (Acute) Date of Admission: 08/10/20 Date of Discharge: 09/13/20 - Primary Discharge Diagnosis Acute Problems: Active Problems Debility (Acute) Fall (Acute) Fracture of left tibia and fibula (Acute) - Secondary Discharge Diagnosis Chronic Problems: Chronic Problems Asthma (Chronic) Chronic kidney disease (Chronic) Familial tremor (Chronic) History of pelvic fracture (Chronic) Hyponatremia (Chronic) Hyperlipidemia (Chronic) Hypokalemia (Chronic) Hospital Course and Treatment Imaging Results: 08/10/20 16:18 Diet: Regular - General Food consistency:: Regular Liquid Consistency:: Regular/Thin Type of Dietary Supplement:: Elias Is pt able to select menu?: Yes Diet Comments: Elias 1 pkt BID w/ L&D. Clinical Impression(s) from Imaging Studies Tibia/Fibula X-Ray 08/24/20 13:10 IMPRESSION: Status post ORIF of left distal tibia fracture. Left distal fibula fracture. at 0022 Reported and signed by: Uzma Mcgowan MD Electronically Signed: Uzma Mcgowan MD at 0:22 EST Tel , Service support , Labs (Last 48 Hours) 09/01/20 09/01/20 05:10 05:10 WBC 8.5 RBC 3.98 L Hgb 10.7 L Hct 34.0 L MCV 85.4 MCH 26.9 L MCHC 31.5 L RDW Std Deviation 43.9 RDW Coeff of Candy 14.1 Plt Count 349 MPV 12.2 H Immature Gran % (Auto) 0.400 Neut % (Auto) 74.9 H Lymph % (Auto) 15.7 L Terry % (Auto) 8.8 Eos % (Auto) 0.0 Baso % (Auto) 0.2 Absolute Neuts (auto) 6.4 Absolute Lymphs (auto) 1.34 Nucleated RBC % 0 Sodium 137 Potassium 4.2 Chloride 105 Carbon Dioxide 28.0 Anion Gap 4 L BUN 46 H Creatinine 0.60 Estim Creat Clear Calc 32.73 Est GFR (MDRD) Af Amer 124 Est GFR (MDRD) Non-Af 102 BUN/Creatinine Ratio 77.1 H Glucose 89 Calcium 8.5 Microbiology 08/31/20 11:35 Nasal Secretion SARS-CoV-2 Antigen (Rapid) - Final Operations: None Procedures: None Summary of Care Provided: The patient is a 80 year old Female with below past medical history hospitalized for left tibia/fibular fracture, underwent left tibia intramedullary rodding 08/08/2020, admitted to TCU with debility, here for rehabilitation, strengthening, prior to discharge home alone. Discharge home with son support, [facility] PT/OT. Patient Problems: Active and Suspected Problems Debility (Acute) Fall (Acute) Fracture of left tibia and fibula (Acute) - Physical Exam Vitals/I&O's: Vital Signs Temp Pulse Resp BP Pulse Ox 97.7 F L 75 16 135/71 H 92 09/01/20 14:04 09/01/20 14:04 09/01/20 14:04 09/01/20 14:04 09/01/20 14:04 Oxygen Delivery Method Room Air Weight: 72.257 kg Body Mass Index (BMI) 30.1 Intake and Output for Last 24 Hours 08/30/20 08/31/20 09/01/20 23:59 23:59 23:59 Intake Total 960 / 960 840 / 840 600 / 600 Balance 960 / 960 840 / 840 600 / 600 Microbiology Past 72 Hours 08/31/20 11:35 Nasal Secretion SARS-CoV-2 Antigen (Rapid) - Final Laboratory Results 09/01/20 05:10: WBC 8.5, RBC 3.98 L, Hgb 10.7 L, Hct 34.0 L, MCV 85.4, MCH 26.9 L, MCHC 31.5 L, RDW Std Deviation 43.9, RDW Coeff of Candy 14.1, Plt Count 349, MPV 12.2 H, Immature Gran % (Auto) 0.400, Neut % (Auto) 74.9 H, Lymph % (Auto) 15.7 L, Terry % (Auto) 8.8, Eos % (Auto) 0.0, Baso % (Auto) 0.2, Absolute Neuts (auto) 6.4, Absolute Lymphs (auto) 1.34, Nucleated RBC % 0 09/01/20 05:10: Sodium 137, Potassium 4.2, Chloride 105, Carbon Dioxide 28.0, Anion Gap 4 L, BUN 46 H, Creatinine 0.60, Estim Creat Clear Calc 32.73, Est GFR (MDRD) Af Amer 124, Est GFR (MDRD) Non-Af 102, BUN/Creatinine Ratio 77.1 H, Glucose 89, Calcium 8.5 Current Medications Acetaminophen (Acetaminophen 500 Mg Tablet) 1,000 mg PO Q6H PRN PRN PRN Reason: Pain Score 1-3 Last Admin: 08/25/20 05:28 Dose: 1,000 mg Documented by: Aspirin (Aspirin E.C. 81 Mg Tablet) [facility] Stop: 09/10/20 08:01 Last Admin: 09/01/20 16:45 Dose: 81 mg Documented by: Bisacodyl (Bisacodyl 10 Mg Suppository) 10 mg RECTAL DAILY PRN PRN Reason: Constipation Magnesium Hydroxide (Magnesium Hydroxide 30 Ml Udc) 30 ml PO DAILY PRN PRN Reason: Constipation Multivitamins/Minerals (Multivitamin (Healthy Eyes) Capsule) [facility] Last Admin: 09/01/20 09:05 Dose: 1 capsule Documented by: Nystatin (Nystatin Powder 15gm Bottle) 1 applic TOPICAL 0800,1800 [facility]; Protocol Last Admin: 09/01/20 16:46 Dose: 1 applicatio Documented by: Oxycodone HCl (Oxycodone 5 Mg Tablet) 2.5 mg PO Q4H PRN PRN PRN Reason: Pain Score 6-10 Polyethylene Glycol (Polyethylene Glycol 3350 17 Gm Packet) 17 gm PO DAILY@0800 [facility] Last Admin: 09/01/20 09:05 Dose: Not Given Documented by: Polysaccharide Iron Complex (Iron Polysaccharide Complex 150 Mg Capsule) [facility] Last Admin: 09/01/20 09:05 Dose: 150 mg Documented by: Senna/Docusate Sodium (Senna/Docusate Sodium 1 Tablet) 1 tablet PO 0800,1800 [facility] Last Admin: 09/01/20 16:44 Dose: Not Given Documented by: Tramadol HCl (Tramadol 50 Mg Tablet) 50 mg PO Q6H PRN PRN PRN Reason: Pain Score 4-5 Discharge Diet: No Restrictions Discharge Activity: Return to Normal Activity, May Shower, Use Walker Weight Bearing Status: Partial weight bearing - 50% Left lower extremity. Keep extremity elevated above heart level: Operative Extremity, Left Leg Call your doctor if you observe: Fever of 101 or Higher, Inability to urinate, Inability to have a bowel movement, Shortness of breath, Chest pain, Uncontrolled pain Home Medications: Medications to take at Discharge Vit C/E/Zn/Coppr/Lutein/Zeaxan [Preservision Areds 2 Softgel] 1 tab PO DAILY 08/10/20 Acetaminophen [Tylenol] 1,000 mg PO Q6H PRN PRN tablet 09/01/20 Iron Polysaccharide Complex [Ferrex 150] 150 mg PO DAILYCM #30 cap 09/01/20 Nystatin Powder [Mycostatin Powder] 1 applic TOPICAL 0800,1800 bottle 09/01/20 Following Prescriptions Were Given to Patient: Iron Polysaccharide Complex [Ferrex 150] 150 mg PO DAILYCM #30 cap Transmission Status: Pending to [id number] Please follow up with your Primary Care Physician in: 1 week. Please Follow Up With: Kevin Cristina MD When: [phone] Disposition: Home with Home Health Minutes spent on discharge:: 35 Patient Condition:: Stable Medical Necessity - Tobacco Use Smoking Status: Never smoker Tobacco Use: Non-smoker Meaningful Use Info Meaningful Use Diagnoses (Choose all that apply): None applicable
[2020-09-02 06:46] VITALS: BP 136/59; PULSE 85; RESP 16; TEMP 36.4; O2SAT 98
[2020-09-02] MEDS: Iron Polysaccharide Complex 150 MG CAPSULE PO (08:44)
[2020-09-02] MEDS: Multivitamin (Healthy Eyes) Capsule 1 CAP PO (08:44)
[2020-09-02] MEDS: Aspirin E.C. 81 MG Tablet PO ×2 (08:44→16:52)
[2020-09-02] MEDS: Nystatin Powder 15gm Bottle 1 APPLIC TOPICAL ×2 (08:46→16:52)
[2020-09-02 09:21] VITALS: PULSE 92; RESP 16; O2SAT 96
[2020-09-02 13:34] VITALS: BP 121/57; PULSE 76; RESP 16; TEMP 36.4; O2SAT 94
[2020-09-02] MEDS: Senna/Docusate Sodium 1 Tablet PO (16:50)
[2020-09-03 01:40] VITALS: BP 148/68; PULSE 88; RESP 16; TEMP 36.8; O2SAT 96
[2020-09-03] MEDS: Iron Polysaccharide Complex 150 MG CAPSULE PO (08:55)
[2020-09-03] MEDS: Aspirin E.C. 81 MG Tablet PO ×2 (08:55→17:52)
[2020-09-03] MEDS: Multivitamin (Healthy Eyes) Capsule 1 CAP PO (08:55)
[2020-09-03] MEDS: Senna/Docusate Sodium 1 Tablet PO (08:55)
[2020-09-03] MEDS: Nystatin Powder 15gm Bottle 1 APPLIC TOPICAL ×2 (08:56→17:52)
[2020-09-03 12:30] VITALS: BP 152/50; PULSE 85; RESP 18; TEMP 36.2; O2SAT 92
[2020-09-03 13:45] VITALS: BP 119/55; PULSE 69; RESP 18; TEMP 36.7; O2SAT 95
[2020-09-04] MEDS: Iron Polysaccharide Complex 150 MG CAPSULE PO (08:27)
[2020-09-04] MEDS: Aspirin E.C. 81 MG Tablet PO ×2 (08:27→16:56)
[2020-09-04] MEDS: Multivitamin (Healthy Eyes) Capsule 1 CAP PO (08:28)
[2020-09-04] MEDS: Nystatin Powder 15gm Bottle 1 APPLIC TOPICAL ×2 (08:29→16:56)
[2020-09-04 13:49] VITALS: PULSE 85; RESP 18; O2SAT 97
[2020-09-04 15:28] VITALS: BP 117/56; PULSE 84; RESP 16; TEMP 36.4; O2SAT 94
[2020-09-05 04:00] VITALS: BP 150/70; PULSE 78; RESP 18; TEMP 36.3; O2SAT 95
[2020-09-05] MEDS: Aspirin E.C. 81 MG Tablet PO ×2 (07:16→16:12)
[2020-09-05] MEDS: Iron Polysaccharide Complex 150 MG CAPSULE PO (07:16)
[2020-09-05] MEDS: Multivitamin (Healthy Eyes) Capsule 1 CAP PO (07:17)
[2020-09-05] MEDS: Senna/Docusate Sodium 1 Tablet PO ×2 (07:17→16:12)
[2020-09-05] MEDS: Nystatin Powder 15gm Bottle 1 APPLIC TOPICAL ×2 (07:17→16:12)
[2020-09-05 13:40] VITALS: BP 122/58; PULSE 80; RESP 16; TEMP 36.9; O2SAT 98
[2020-09-06 04:06] VITALS: BP 131/62; PULSE 74; RESP 16; TEMP 36.4; O2SAT 93
[2020-09-06] MEDS: Aspirin E.C. 81 MG Tablet PO ×2 (08:28→16:17)
[2020-09-06] MEDS: Iron Polysaccharide Complex 150 MG CAPSULE PO (08:28)
[2020-09-06] MEDS: Multivitamin (Healthy Eyes) Capsule 1 CAP PO (08:28)
[2020-09-06] MEDS: Senna/Docusate Sodium 1 Tablet PO (08:29)
[2020-09-06 14:06] VITALS: BP 121/48; PULSE 75; RESP 16; TEMP 36.4; O2SAT 94
[2020-09-07] MEDS: Aspirin E.C. 81 MG Tablet PO ×2 (08:28→17:14)
[2020-09-07] MEDS: Iron Polysaccharide Complex 150 MG CAPSULE PO (08:29)
[2020-09-07] MEDS: Multivitamin (Healthy Eyes) Capsule 1 CAP PO (08:29)
[2020-09-07] MEDS: Senna/Docusate Sodium 1 Tablet PO (08:29)
[2020-09-07] MEDS: Nystatin Powder 15gm Bottle 1 APPLIC TOPICAL ×2 (08:30→17:14)
[2020-09-07 10:00] VITALS: PULSE 71; RESP 16; O2SAT 98
[2020-09-07 14:54] VITALS: BP 125/65; PULSE 83; RESP 16; TEMP 37.3; O2SAT 96
--- NOTE | 2020-09-07 18:22 | RAD_ITS ---
STUDY: X-RAY - RIGHT FOOT CLINICAL: Female, 80 years old. FOOT PAIN -- PT IS S/P TIB/FIB FX AND SURGICAL REPAIR x3 WEEKS AGO TECHNIQUE: 3 view(s) of the foot. COMPARISON: None. FINDINGS: There is mild to moderate degenerative arthrosis of the metatarsophalangeal joint of the hallux with a hallux valgus deformity. There is also mild narrowing of the remaining MTP and IP joint spaces. The bony structures are diffusely demineralized. No visualized acute fracture of the foot. Mild to moderate degenerative arthrosis is also present at the TMT articulations. A small plantar calcaneal spur is present. Moderate diffuse soft tissue swelling is present. RAD/Foot min 3 Views IMPRESSION: Degenerative changes. Moderate soft tissue swelling Electronically Signed: Juan Gandhi MD at 20:53 EST , Service support ,
--- NOTE | 2020-09-07 18:59 | PN_ITS ---
Subjective: Resident seen and examined for regulatory visit. She is sitting in chair in her room. She has some hesitancy about going home, but her son is flying in from [place] and will be staying wit her for 1 week. I reassured her she will be okay. Vitals/I&O's: Vital Signs Temp Pulse Resp BP Pulse Ox 99.1 F 83 16 125/65 H 96 09/07/20 14:54 09/07/20 14:54 09/07/20 14:54 09/07/20 14:54 09/07/20 14:54 Oxygen Delivery Method Room Air Weight: 72.257 kg Body Mass Index (BMI) 30.1 Intake and Output for Last 24 Hours 09/05/20 09/06/20 09/07/20 23:59 23:59 23:59 Intake Total 720 / 720 960 / 960 360 / 360 Balance 720 / 720 960 / 960 360 / 360 Microbiology Past 72 Hours 09/07/20 11:30 Nasal Secretion SARS-CoV-2 Antigen (Rapid) - Final Past Medical History Past Medical History (Chronic Problems): Chronic Problems Asthma (Chronic) Chronic kidney disease (Chronic) Familial tremor (Chronic) History of pelvic fracture (Chronic) Hyponatremia (Chronic) Hyperlipidemia (Chronic) Hypokalemia (Chronic) Allergies No Known Allergies Allergy (Verified 08/10/20 16:15) Home Medications: Ambulatory Orders Medication Instructions Recorded Vit C/E/Zn/Coppr/Lutein/Zeaxan 1 tab PO DAILY 08/10/20 [Preservision Areds 2 Softgel] Acetaminophen [Tylenol] 1,000 mg PO Q6H PRN PRN tab 09/01/20 Iron Polysaccharide Complex 150 mg PO DAILYCM #30 cap 09/01/20 [Ferrex 150] Nystatin Powder [Mycostatin Powder] 1 applic TOPICAL 0800,1800 bottle 09/01/20 Surgical History: hysterectomy - Abdominal 1983., tonsillectomy, - - Arthroscopy 10/05/99, Left tibia intramedullary rodding. Psychiatric History: No pertinent psych hx MEDICAL CLAIMS PROCESSOR History: No pertinent MEDICAL CLAIMS PROCESSOR history Lives: Alone Smoking Status: Never smoker Tobacco Use: Non-smoker Alcohol: None Drugs: None - *Family History Sibling History Items: Cancer - Lung, Prostate., DVT, Heart Disease, - - Tremor. Paternal History Items: Heart Disease, Hypertension Maternal History Items: Clotting Disorder - Thrombocytopenia., - - Glaucoma, heart valve disorder. Capacity - Capacity Assessment Tool Can the patient make a choice & communicate that choice?: Yes Can the patient understand benefits, risks and alternatives?: Yes Can the patient make a logical, rational choice?: Yes Is the choice the patient makes consistent w/ their values?: Yes Is there an impending, emergent risk to the patient?: No Does the patient have an Advance Directive?: No Is there a Surrogate Available?: Yes i.e. HCPOA: Yes i.e. close relative (spouse, child, parent, sibling)?: Yes Review of Systems Constitutional: Denies: Chills, Fever, Weight Change HEENT: Denies: Head Aches, Sinus Congestion, Sinus Drainage Cardiovascular: Denies: Chest Pain, Palpitations Respiratory: Denies: Cough, Shortness of breath at rest, Sputum production Gastrointestinal: Denies: Abdominal Pain, Nausea, Vomiting Genitourinary: Denies: Dysuria Musculoskeletal: Denies: Joint Pain, Joint Tenderness Skin: Denies: Rash, Wounds Neurological: Denies: Numbness, Tingling, Focal weakness Psychiatric: Denies: Anxiety, Depression, Homicidal Ideations, Suicidal Ideations Hematologic/ Lymphatic: Denies: Easy Bruising, Easy Bleeding Patient Problems: Active and Suspected Problems Debility (Acute) Fall (Acute) Fracture of left tibia and fibula (Acute) - Physical Exam Vitals/I&O's: Vital Signs Temp Pulse Resp BP Pulse Ox 99.1 F 83 16 125/65 H 96 09/07/20 14:54 09/07/20 14:54 09/07/20 14:54 09/07/20 14:54 09/07/20 14:54 Oxygen Delivery Method Room Air Weight: 72.257 kg Body Mass Index (BMI) 30.1 Intake and Output for Last 24 Hours 09/05/20 09/06/20 09/07/20 23:59 23:59 23:59 Intake Total 720 / 720 960 / 960 360 / 360 Balance 720 / 720 960 / 960 360 / 360 General: Alert, Oriented x3, Cooperative HEENT: Atraumatic, PERRLA, EOMI, Normocephalic Neck: Supple, No JVD, Negative Carotid Bruits Lungs: Clear to auscultation, Normal air movement Cardiovascular: Regular rate, No murmurs Abdomen: Bowel Sounds Present, Soft, Non Tender Extremities: No edema, Capillary Refill Less than 3 Seconds, - - Left lower extremity boot. Skin: No rashes, No breakdown Musculoskeletal: No Tenderness to Palpation of Joints or Extremities Neurological: Cranial nerves II-XII grossly intact Psych/Mental Status: Normal Affect, Appropriate Microbiology Past 72 Hours 09/07/20 11:30 Nasal Secretion SARS-CoV-2 Antigen (Rapid) - Final Current Medications Acetaminophen (Acetaminophen 500 Mg Tablet) 1,000 mg PO Q6H PRN PRN PRN Reason: Pain Score 1-3 Last Admin: 08/25/20 05:28 Dose: 1,000 mg Documented by: Aspirin (Aspirin E.C. 81 Mg Tablet) [facility] Stop: 09/10/20 08:01 Last Admin: 09/07/20 17:14 Dose: 81 mg Documented by: Bisacodyl (Bisacodyl 10 Mg Suppository) 10 mg RECTAL DAILY PRN PRN Reason: Constipation Magnesium Hydroxide (Magnesium Hydroxide 30 Ml Udc) 30 ml PO DAILY PRN PRN Reason: Constipation Multivitamins/Minerals (Multivitamin (Healthy Eyes) Capsule) [facility] Last Admin: 09/07/20 08:29 Dose: 1 capsule Documented by: Nystatin (Nystatin Powder 15gm Bottle) 1 applic TOPICAL 0800,1800 [facility]; Protocol Last Admin: 09/07/20 17:14 Dose: 1 applicatio Documented by: Oxycodone HCl (Oxycodone 5 Mg Tablet) 2.5 mg PO Q4H PRN PRN PRN Reason: Pain Score 6-10 Polyethylene Glycol (Polyethylene Glycol 3350 17 Gm Packet) 17 gm PO DAILY@0800 [facility] Last Admin: 09/07/20 08:29 Dose: Not Given Documented by: Polysaccharide Iron Complex (Iron Polysaccharide Complex 150 Mg Capsule) [facility] Last Admin: 09/07/20 08:29 Dose: 150 mg Documented by: Senna/Docusate Sodium (Senna/Docusate Sodium 1 Tablet) 1 tablet PO 0800,1800 [facility] Last Admin: 09/07/20 17:14 Dose: Not Given Documented by: Tramadol HCl (Tramadol 50 Mg Tablet) 50 mg PO Q6H PRN PRN PRN Reason: Pain Score 4-5 Assessment/Plan All Active Problems Debility (Acute) Fall (Acute) Fracture of left tibia and fibula (Acute) 80 year old female with below past medical history hospitalized for left tibia/fibular fracture, underwent left tibia intramedullary rodding 08/08/2020, admitted to TCU with debility, here for rehabilitation, strengthening, prior to discharge home alone. * Debility - PT/OT. * Pain - Tylenol 1000MG Q6H PRN pain (1-3), Tramadol 50MG Q6H PRN pain (4-5), Oxycodone 2.5MG Q4H PRN pain (6-10). * Bowel - Miralax 17GM daily, Senna/colace 1 tablet BID, MOM 30ML daily PRN, Dulcolax 10MG ME daily PRN. * Adult immunization - Administer Prevnar 13, Pneumovax 23, Fluzone as appropriate. * DVT prophylaxis - Aspirin 81MG BID thru 09/10/2020. * Macular degeneration - Healthy Eyes 1 tablet daily. * Iron deficiency anemia - Ferrex 150MG daily. * Tinea Corporis - Nystatin powder BID.
[2020-09-08 06:38] VITALS: BP 127/42; PULSE 73; RESP 16; TEMP 36.6; O2SAT 92
[2020-09-08] MEDS: Aspirin E.C. 81 MG Tablet PO ×2 (07:58→17:46)
[2020-09-08] MEDS: Iron Polysaccharide Complex 150 MG CAPSULE PO (07:58)
[2020-09-08] MEDS: Senna/Docusate Sodium 1 Tablet PO ×2 (07:59→17:46)
[2020-09-08] MEDS: Multivitamin (Healthy Eyes) Capsule 1 CAP PO (07:59)
[2020-09-08] MEDS: Nystatin Powder 15gm Bottle 1 APPLIC TOPICAL ×2 (08:00→17:46)
[2020-09-08 12:45] VITALS: BP 134/73; PULSE 81; RESP 16; TEMP 36.6; O2SAT 98
[2020-09-08] MEDS: Acetaminophen 500 MG Tablet 1000 MG PO (18:09)
--- NOTE | 2020-09-08 18:31 | NURSING ---
PT C/O RT FOOT PAIN, NO EDEMA OR REDNESS. DR GAO UPDATED, NEW ORDER XRAY
[2020-09-09 01:02] VITALS: BP 135/51; PULSE 81; RESP 16; TEMP 36.6; O2SAT 96
[2020-09-09] MEDS: Aspirin E.C. 81 MG Tablet PO ×2 (08:36→17:09)
[2020-09-09] MEDS: Iron Polysaccharide Complex 150 MG CAPSULE PO (08:36)
[2020-09-09] MEDS: Multivitamin (Healthy Eyes) Capsule 1 CAP PO (08:36)
[2020-09-09] MEDS: Nystatin Powder 15gm Bottle 1 APPLIC TOPICAL ×2 (08:38→17:10)
[2020-09-09] MEDS: Senna/Docusate Sodium 1 Tablet PO ×2 (08:38→17:09)
[2020-09-09 13:47] VITALS: BP 122/69; PULSE 76; RESP 16; TEMP 36.3; O2SAT 97
[2020-09-10 02:26] VITALS: BP 131/58; PULSE 86; RESP 16; TEMP 36.9; O2SAT 98
[2020-09-10] MEDS: Aspirin E.C. 81 MG Tablet PO (08:42)
[2020-09-10] MEDS: Multivitamin (Healthy Eyes) Capsule 1 CAP PO (08:42)
[2020-09-10] MEDS: Iron Polysaccharide Complex 150 MG CAPSULE PO (08:42)
[2020-09-10] MEDS: Senna/Docusate Sodium 1 Tablet PO ×2 (08:42→08:43)
[2020-09-10] MEDS: Nystatin Powder 15gm Bottle 1 APPLIC TOPICAL ×2 (08:43→17:05)
--- NOTE | 2020-09-10 11:52 | MDS.RN ---
Completed pain interview for kaye 09/13/20.
--- NOTE | 2020-09-10 13:34 | NURSING ---
Resident and family updated on current COVID status on the unit.
[2020-09-10 14:06] VITALS: BP 118/63; PULSE 64; RESP 17; TEMP 36.2; O2SAT 95
[2020-09-11 08:41] LABS: Absolute Lymphocyte Count 1.21 X10^3/uL (0.83-4.51); Absolute Neutrophil Count 6.8 X10^3/uL (2.0-7.7); Basophil# 0.02 X10^3/uL; Basophil% 0.2 % (0-1); Hematocrit 36.4 % (37-47); Hemoglobin 11.6 g/dL (12.0-15.0); Lymphocyte # 1.21 X10^3/ul (4.0); Lymphocyte % 14.1 % (19-41); Mean Corp Hgb Conc 31.9 g/dL (32-36); Mean Corpuscular Hgb 27.6 pg (27.0-32.0); Mean Corpuscular Volume 86.7 fL (81-99); Mean Platelet Vol. 12.2 fl (6.2-12.0); Monocyte# 0.56 X10^3/uL; Monocyte% 6.5 % (0-10); NRBC Flagged by Analyzer 0 % (0-5); Neutrophil # 6.76 X10^3/uL (2.7-7.7); Neutrophil % 78.9 % (47-70); Platelet Count 320 K/mm3 (150-450); RBC Distribution Width CV 14.1 % (11.6-14.6); RBC Distribution Width SD 44.8 fl (35.1-43.9); White Blood Count 8.6 K/mm3 (4.4-11.0)
[2020-09-11] MEDS: Multivitamin (Healthy Eyes) Capsule 1 CAP PO (08:55)
[2020-09-11] MEDS: Iron Polysaccharide Complex 150 MG CAPSULE PO (08:55)
[2020-09-11] MEDS: Senna/Docusate Sodium 1 Tablet PO ×2 (08:57→17:50)
[2020-09-11] MEDS: Nystatin Powder 15gm Bottle 1 APPLIC TOPICAL ×2 (08:57→17:50)
[2020-09-11 09:02] LABS: Anion Gap 4 (5-15); BUN 36 mg/dL (7-18); BUN/Creat Ratio 49.3 RATIO (10-20); Calcium,Total 8.9 mg/dL (8.5-10.1); Chloride 109 mmol/L (98-107); Creatinine, Serum 0.73 mg/dL (0.55-1.02); EST Glomerular Filtration Rate 81 mL/min (>60); Est Glom Filt Rate - Afr Amer 98 mL/min (>60); Estimated Creatinine Clearance 32.73 ml/min; Glucose 118 mg/dL (74-106); Potassium 4.2 mmol/L (3.5-5.1); Sodium Level 140 mmol/L (136-145)
--- NOTE | 2020-09-11 09:44 | CASEMGMT ---
Social Work BIMS and PHQ-9 completed for MDS assessment. Alyse Burnett, FRAME CATCHER COMPUTER METHODS ANALYST
[2020-09-11 10:00] VITALS: PULSE 75; RESP 16; O2SAT 97
[2020-09-11 14:04] VITALS: BP 120/65; PULSE 65; RESP 16; TEMP 36.2; O2SAT 94
[2020-09-12 04:00] VITALS: BP 143/62; PULSE 80; RESP 16; TEMP 37.1; O2SAT 94
[2020-09-12] MEDS: Multivitamin (Healthy Eyes) Capsule 1 CAP PO (08:09)
[2020-09-12] MEDS: Iron Polysaccharide Complex 150 MG CAPSULE PO (08:09)
[2020-09-12] MEDS: Senna/Docusate Sodium 1 Tablet PO (08:10)
[2020-09-12] MEDS: Nystatin Powder 15gm Bottle 1 APPLIC TOPICAL ×2 (08:11→17:24)
--- NOTE | 2020-09-12 10:25 | NURSING ---
Addendum entered by Paula Nickerson 09/12/20 18:39: new order for zpak & sputum specimen Original Note: PT HAS MOIST COUGH THIS MORNING. LUNGS CLEAR,GAVE I.S. PT STATED SHE JUST STARTED COUGHING EARLY THIS MORNING AND THOUGHT IT WAS TO DRY IN THE ROOM. REPORTED TO KALEIGH.
[2020-09-12 15:37] VITALS: BP 120/73; PULSE 85; RESP 16; TEMP 36.6; O2SAT 96
[2020-09-12] MEDS: Azithromycin 250 MG Tablet 500 MG PO (17:24)
--- NOTE | 2020-09-12 17:37 | NURSING ---
patient requesting money to be returned from locked medication cabinet. this RN returned bag with patients own money to her at this time. pt is currently packing belongings for discharge 09/13.
[2020-09-12 19:45] VITALS: RESP 15
[2020-09-13 07:11] VITALS: BP 133/53; PULSE 79; RESP 15; TEMP 36.7; O2SAT 93
[2020-09-13] MEDS: Iron Polysaccharide Complex 150 MG CAPSULE PO (08:24)
[2020-09-13] MEDS: Multivitamin (Healthy Eyes) Capsule 1 CAP PO (08:24)
[2020-09-13] MEDS: Azithromycin 250 MG Tablet PO (09:47)
[2020-09-13 09:54] VITALS: BP 139/84; PULSE 80; RESP 18; TEMP 36.4; O2SAT 96
[2020-09-13 09:56] VITALS: PULSE 80; RESP 18; O2SAT 96
--- NOTE | 2020-09-14 08:42 | CASEMGMT ---
Social Work Pt told nursing at [facility] she needed a FWW at home. SW contacted pt to inquire at need as pt told this worker she had a walker. Pt stated she does need a walker and has not received one from insurance within the last 5 years. Ordered FWW through [facility] to be delivered to home. BRADLEY ChangW
== END 2020-09-13 10:45 | disposition home health service (06) | DRG 561 ==
PROVIDERS: Admitting Provider Family Medicine Geriatric Medicine; Visit Provider Family Medicine Geriatric Medicine
DX: S82.202D Unspecified fracture of shaft of left tibia, subsequent encounter for closed fracture with routine healing (principal); S82.402D Unspecified fracture of shaft of left fibula, subsequent encounter for closed fracture with routine healing; N18.9 Chronic kidney disease, unspecified; Z23 Encounter for immunization; E78.5 Hyperlipidemia, unspecified; J45.909 Unspecified asthma, uncomplicated; G25.0 Essential tremor; W01.0XXD Fall on same level from slipping, tripping and stumbling without subsequent striking against object, subsequent encounter; H35.30 Unspecified macular degeneration; D50.9 Iron deficiency anemia, unspecified; B35.4 Tinea corporis
CPT/HCPCS: 36415; 73590; 73630; 80048; 82962; 85025; 87426; 87635; 97110; 97116; 97162; 97166; 97530; 97535; 97542; 97802; G0008; 90686; U0003

== ENCOUNTER → 2024-06-10 | Outpatient (REF) | payer MEDICARE, OTHER, SELFPAY ==
[2024-06-10 09:38] LABS: Hematocrit 25.6 % (37-47); Hemoglobin 7.7 g/dL (12.0-15.0); Mean Corp Hgb Conc 30.1 g/dL (32-36); Mean Corpuscular Hgb 23.5 pg (27.0-32.0); Mean Corpuscular Volume 78.3 fL (81-99); Mean Platelet Vol. 11.5 fl (6.2-12.0); Platelet Count 708 K/mm3 (150-450); RBC Distribution Width CV 17.4 % (11.6-14.6); RBC Distribution Width SD 49.3 fl (35.1-43.9); Red Blood Count 3.27 M/mm3 (4.2-5.4); White Blood Count 17.5 K/mm3 (4.4-11.0)
[2024-06-10 10:37] LABS: Anion Gap 7 (5-15); BUN 43 mg/dL (7-18); BUN/Creat Ratio 36.4 RATIO (10-20); Calcium,Total 9.1 mg/dL (8.5-10.1); Chloride 106 mmol/L (98-107); Creatinine, Serum 1.18 mg/dL (0.55-1.02); EST Glomerular Filtration Rate 46 mL/min (>60); Est Glom Filt Rate - Afr Amer 56 mL/min (>60); Glucose 116 mg/dL (74-106); Potassium 3.9 mmol/L (3.5-5.1); Sodium Level 141 mmol/L (136-145)
== END ==
LOC: OLS.ACH 05:00
PROVIDERS: Visit Provider Internal Medicine
DX: D50.0 Iron deficiency anemia secondary to blood loss (chronic) (principal)
CPT/HCPCS: 36415; 80048; 85027

== ENCOUNTER → 2024-06-11 | Outpatient (REF) | payer SELFPAY ==
[2024-06-11 08:23] LABS: Hematocrit 26.8 % (37-47); Mean Corp Hgb Conc 29.9 g/dL (32-36); Mean Corpuscular Hgb 23.7 pg (27.0-32.0); Mean Corpuscular Volume 79.3 fL (81-99); Mean Platelet Vol. 11.6 fl (6.2-12.0); Platelet Count 722 K/mm3 (150-450); RBC Distribution Width CV 17.4 % (11.6-14.6); RBC Distribution Width SD 50.4 fl (35.1-43.9); Red Blood Count 3.38 M/mm3 (4.2-5.4)
[2024-06-11 08:35] LABS: Vitamin B12 581 pg/mL (211-911)
[2024-06-11 08:48] LABS: Anion Gap 6 (5-15); BUN 33 mg/dL (7-18); BUN/Creat Ratio 33.3 RATIO (10-20); Calcium,Total 8.8 mg/dL (8.5-10.1); Chloride 108 mmol/L (98-107); Creatinine, Serum 0.99 mg/dL (0.55-1.02); EST Glomerular Filtration Rate 56 mL/min (>60); Est Glom Filt Rate - Afr Amer 68 mL/min (>60); Ferritin 351 ng/mL (8-252); Glucose 106 mg/dL (74-106); Iron Binding Capacity,Total 257 ug/dL (250-450); Potassium 3.9 mmol/L (3.5-5.1); Sodium Level 142 mmol/L (136-145)
== END | disposition home or self-care (01) ==
LOC: OLS.ACH 05:00
PROVIDERS: Visit Provider Internal Medicine
DX: C64.1 Malignant neoplasm of right kidney, except renal pelvis (principal); C79.71 Secondary malignant neoplasm of right adrenal gland; C79.72 Secondary malignant neoplasm of left adrenal gland
CPT/HCPCS: 36415; 80048; 82607; 82728; 82746; 83550; 85027